=== PATIENT | male | born 1985 | race Caucasian/White ===

== ENCOUNTER 2024-09-19 13:39 | Emergency (ER) | payer OTHER ==
[~2024-09-19] VITALS: Ht 182.8 cm; Wt 113.4 kg
[2024-09-19] MEDS ORDERED: SEPTDS PO (13:56)
[2024-09-19] MEDS ORDERED: CEPHALEXIN500 M1 PO (13:56)
== END 2024-09-19 14:04 | disposition home or self-care (01) ==
LOC: ED 13:39
DX: L05.91 Pilonidal cyst without abscess (principal)